=== PATIENT | female | born 1995 | race Caucasian/White ===

== ENCOUNTER → 2017-10-30 | Emergency (ER) | payer OTHER ==
[~2017-10-30] VITALS: Ht 160 cm; Wt 65.3 kg
[~2017-10-30] MED LIST: BACTRIM DS TAB1 EACH PO; URIN D.S. TABL1 EACH PO
== END | disposition home or self-care (01) ==
LOC: ER 22:13 → EDBD 22:17
DX: N39.0 Urinary tract infection, site not specified (principal); R10.2 Pelvic and perineal pain

== ENCOUNTER → 2018-02-06 | Emergency (ER) | payer OTHER ==
[~2018-02-06] VITALS: Ht 175.3 cm; Wt 67.1 kg
== END | disposition home or self-care (01) ==
LOC: ER 00:58
DX: N39.0 Urinary tract infection, site not specified (principal); Z33.1 Pregnant state, incidental

== ENCOUNTER 2018-03-12 18:52 | Emergency (ER) | payer OTHER ==
[~2018-03-12] VITALS: Ht 175.3 cm; Wt 65.8 kg
== END 2018-03-12 21:57 | disposition home or self-care (01) ==
LOC: ER 18:52
DX: R10.2 Pelvic and perineal pain (principal); R68.83 Chills (without fever)